=== PATIENT | female | born 1955 | race Caucasian/White ===

== ENCOUNTER 2016-11-25 12:04 | Inpatient (IN) | payer MEDICAID, OTHER ==
[2016-11-25 12:16] VITALS: O2SAT 98
--- NOTE | 2016-11-25 14:01 | ED PDOC ---
HPI: Psych/Substance Abuse Time Seen by Provider: 11/25/16 12:53 Chief Complaint (Nursing): Psychiatric Evaluation Chief Complaint (Provider): Psychiatric Evaluation History Per: Patient History/Exam Limitations: no limitations Current Symptoms Are (Timing): Still Present Associated Symptoms: Depression. denies: Suicidal Thoughts Additional Complaint(s): Madison Alfred, a 60 year old female, who has a past medical history of depression is brought into the ED for psychiatric evaluation. The patient has been depressed for some time and recently had her antidepressant medication cut by her doctor. The patient was recently seen at a social workers office and sent to the ER. The patient reports that she has been feeling more depressed than usual and so she is here to day for evaluation. She states she cannot sleep and has been feeling anxious. Denies HI/SI hallucinations. Family members are present with patient. Past Medical History Reviewed: Historical Data, Nursing Documentation, Vital Signs Vital Signs: Last Vital Signs Temp 97.9 F 11/25/16 12:13 Pulse 85 11/25/16 12:13 Resp 18 11/25/16 12:13 BP 124/76 11/25/16 12:13 Pulse Ox 98 11/25/16 12:13 - Medical History PMH: Depression - Surgical History Surgical History: No Surg Hx - Family History Family History: States: Unknown Family Hx - Home Medications Home Medications: Ambulatory Orders Medication Instructions Recorded Phenobarbital [Phenobarbital] 97.2 mg PO HS 11/25/16 QUEtiapine [Seroquel XR] 50 mg PO HS 11/25/16 Venlafaxine [Effexor XR] 150 mg PO DAILY 11/25/16 clonazePAM [Klonopin] 0.5 mg PO HS 11/25/16 - Allergies Allergies/Adverse Reactions: Allergies Allergy/AdvReac Type Severity Reaction Status Date / Time No Known Allergies Allergy Verified 11/25/16 12:13 Review of Systems Psych: Positive for: Other (Denies HI/SI halucinations). Negative for: Suicidal ideation Physical Exam - Reviewed Nursing Documentation Reviewed: Yes Vital Signs Reviewed: Yes - Physical Exam Appears: Positive for: Non-toxic, No Acute Distress Head Exam: Positive for: ATRAUMATIC, NORMAL INSPECTION, NORMOCEPHALIC Skin: Positive for: Normal Color, Warm, Dry Eye Exam: Positive for: Normal appearance, EOMI, PERRL ENT: Positive for: Normal ENT Inspection Neck: Positive for: Normal, Painless ROM, Supple Cardiovascular/Chest: Positive for: Regular Rate, Rhythm, Chest Non Tender. Negative for: Tachycardia Respiratory: Positive for: Normal Breath Sounds. Negative for: Wheezing, Respiratory Distress Gastrointestinal/Abdominal: Positive for: Normal Exam, Bowel Sounds, Soft. Negative for: Tenderness, Guarding Back: Positive for: Normal Inspection Extremity: Positive for: Normal ROM. Negative for: Tenderness, Pedal Edema, Deformity, Swelling Neurologic/Psych: Positive for: Alert, Oriented, Gait - Laboratory Results Result Diagrams: 11/25/16 14:51 11/25/16 14:51 - ECG O2 Sat by Pulse Oximetry: 98 (RA) Pulse Ox Interpretation: Normal Medical Decision Making Medical Decision Makin Initial Impression: 60 year old female presenting for psychiatric Evaluation Initial Plan: * EKG * Alcohol Serum * Comp Metabolic Panel * Drug Screen * Crisis Evaluation * CBC * CXR Portable * Reevaluation * * Pt qualifies for admission. pt is stable for admission at this time. Scribe Attestation Documented by Esha Palumbo acting as a scribe for Kelsi Boogie PA-C. Scribe Attestation All medical record entries made by the Scribe were at my direction and personally dictated by me. I have reviewed the chart and agree that the record accurately reflects my personal performance of the history, physical exam, medical decision making, and the department course for this patient. I have also personally directed, reviewed, and agree with the discharge instructions and disposition. Disposition - Clinical Impression Clinical Impression: Depressive disorder - Patient ED Disposition Is Patient to be Admitted: Yes - Disposition Disposition Time: 15:42 Condition: STABLE - Pt Status Changed To: Hospital Disposition Of: Inpatient - Admit Certification Admit to Inpatient:: After my assessment, the patient will require hospitalization for at least two midnights. This is because of the severity of symptoms shown, intensity of services needed, and/or the medical risk in this patient being treated as an outpatient.
--- NOTE | 2016-11-25 14:34 | RAD ---
HISTORY: medica exam COMPARISON: No prior. FINDINGS: LUNGS: No active pulmonary disease. PLEURA: No significant pleural effusion identified, no pneumothorax apparent. CARDIOVASCULAR: Normal. OSSEOUS STRUCTURES: No significant abnormalities. VISUALIZED UPPER ABDOMEN: Normal. OTHER FINDINGS: None. IMPRESSION: No active disease.
[2016-11-25 14:56] LABS: BASO % 0.5 % (0.0-2.0); EOS # 0.1 K/uL (0.0-0.7); EOS % 2.9 % (0.0-4.0); HEMOGLOBIN 13.2 g/dL (12.0-16.0); LYMPH # 0.8 K/uL (1.0-4.3); LYMPH % 16.9 % (20.0-40.0); MEAN CELL VOLUME 81.6 fl (81.0-99.0); MEAN CORPUSCULAR HEMOGLOBIN 27.3 pg (27.0-31.0); MEAN CORPUSCULAR HGB CONC 33.5 g/dL (33.0-37.0); MEAN PLATELET VOLUME 6.7 fl (7.2-11.7); MONO # 0.7 K/uL (0.0-0.8); MONO % 13.9 % (0.0-10.0); NEUT # 3.1 K/uL (1.8-7.0); NEUT % 65.8 % (50.0-75.0); NRBC % 0.1 % (0.0-0.0); RBC 4.82 Mil/uL (3.80-5.20); RED CELL DISTRIBUTION WIDTH 13.7 % (11.5-14.5); WHITE BLOOD COUNT 4.7 K/uL (4.8-10.8)
[2016-11-25 15:09] LABS: BARBITURATES, UR POSITIVE (NEGATIVE); BENZODIAZEPINES, UR NEGATIVE (NEGATIVE); OPIATES, UR NEGATIVE (NEGATIVE); PHENCYCLIDINE, UR NEGATIVE (NEGATIVE)
[2016-11-25 15:19] LABS: ALB/GLOB RATIO 1.5 (1.0-2.1); ALBUMIN 4.6 g/dL (3.5-5.0); ALT/SGPT 46 U/L (9-52); AST/SGOT 32 U/L (14-36); BLOOD UREA NITROGEN 19 mg/dl (7-17); CALCIUM 9.6 mg/dL (8.4-10.2); GFR AFRICAN-AMERICAN > 60; GFR NON-AFRICAN AMERICAN > 60
[2016-11-25] MEDS ORDERED: Alum-Mag Hydrox-Simethicone Susp (30 mL) PO PRN (17:18)
[2016-11-25] MEDS ORDERED: Magnesium Hydroxide Susp 30 ml UD PO PRN (17:18)
[2016-11-25] MEDS ORDERED: DiphenhydrAMINE 50 mg/ml Inj IM PRN (17:18)
[2016-11-26 07:31] LABS: ALB/GLOB RATIO 1.4 (1.0-2.1); ALBUMIN 4.6 g/dL (3.5-5.0); ALT/SGPT 44 U/L (9-52); AST/SGOT 29 U/L (14-36); BLOOD UREA NITROGEN 16 mg/dl (7-17); CALCIUM 9.4 mg/dL (8.4-10.2); GFR AFRICAN-AMERICAN > 60; GFR NON-AFRICAN AMERICAN > 60; HDL CHOLESTEROL 57 MG/DL (30-70)
[2016-11-26 07:36] LABS: T4 7.86 ug/dl (5.5-11.0)
[2016-11-26 07:42] LABS: LDL CHOLESTEROL 78 mg/dL (0-129)
--- NOTE | 2016-11-26 09:35 | CP.PCM.CON ---
<Jose Barksdale - Last Filed: 11/26/16 12:00> History of Present Illness - History of Present Illness History of Present Illness: 60 y/o female with a PMHx of depression and cervical dysplasia s/p radiation tx who came into [facility] ED for evaluation. She reports she has been feeling more anxious and energized recently. She reports she has been making lots of phone calls to random people and has not been able to sleep. She also reports her anti -depression medications have run out. No other complaints. Denies suicidal/ homicidal ideation, denies visual/auditory hallucinations. ROS: 12 points reviewed, found to be negative. PMD: PMHx: depression, cervical dysplasia (pt reports she was diagnosed "pre- cancercous" Meds: as per med rec ALL: NKDA Psurghx: hysterectomy for fibroma 15 yeras ago, HPV procedure? LMP: 15 years ago POBhx: , NSVDx3 SocialHx: denies ETOH, Tobacco, drug abuse. FamilyHx: noncontributory PE: GEN: AAOx3, NAD, pleasant mood HEENT: atraumatic, EMOI, RAI, sclera nonicteric, conjunctiva clear, no cervical adenopathy, carotid bruit, FROM CVS: RRR, S1S2, No JVD, No MRG RESP: CTA B/L, A/P, Good air entry, No WRR ABD: +BS, Soft, NT/ND/No organomegaly, no masses, no guarding/rigidity EXT: Pulses 2+ throughout, no pedal edema, FROM NEURO: CN II-XII grossly intact, sensation intact, reflexes equal b/l, gait normal PSYCH: flat affect, cooperative with examination, judgement/insight good, no suicidal/homicidal ideation Assessment: 60 y/o female with a PMHx of depression admitted for evaluation for depressive disorder. Plan: 1) Depressive Disorder: -as per psych team 2) Preventive -HbA1c: pending -Lipid panel: pending -RPR: pending -CBC: pending -CMP: pending -will continue to follow as pt remains in house. Past Patient History - Past Social History Smoking Status: Never Smoked - CARDIAC Hx Cardiac Disorders: No - PULMONARY Hx Respiratory Disorders: No - NEUROLOGICAL Hx Neurological Disorder: No Hx Alzheimer's Disease: No HX Cerebrovascular Accident: No Other/Comment: history of epileptic attacks - HEENT Hx HEENT Problems: No - RENAL Hx Chronic Kidney Disease: No - ENDOCRINE/METABOLIC Hx Endocrine Disorders: No - HEMATOLOGICAL/ONCOLOGICAL Hx Blood Disorders: No Hx Human Immunodeficiency Virus (HIV): No Other/Comment: patient states she is getting radiation treatment and states she has cervical dysplasia and however states that she never got diagnosed with cancer - INTEGUMENTARY Hx Dermatological Problems: No - MUSCULOSKELETAL/RHEUMATOLOGICAL Hx Musculoskeletal Disorders: No - GENITOURINARY/GYNECOLOGICAL Hx Cervical Cancer: No (patient states she has no cancer but has cervical dysplasia) Other/Comment: hs of HPV - PSYCHIATRIC Hx Depression: Yes Hx Substance Use: No (pt denies) - SURGICAL HISTORY Hx Surgeries: No Hx Hysterectomy: Yes - ANESTHESIA Hx Anesthesia: No Meds Allergies/Adverse Reactions: Allergies Allergy/AdvReac Type Severity Reaction Status Date / Time No Known Allergies Allergy Verified 11/25/16 12:13 - Medications Medications: Current Medications Acetaminophen (Tylenol 325mg Tab) 650 mg PO Q4 PRN PRN Reason: pain 0-10 Al Hydrox/Mg Hydrox/Simethicone (Maalox Plus 30 Ml) 30 ml PO Q4 PRN PRN Reason: Dyspepsia Diphenhydramine HCl (Benadryl) 50 mg IM Q6 PRN PRN Reason: Extrapyramidal S/S Unable PO Diphenhydramine HCl (Benadryl) 50 mg PO HS PRN PRN Reason: Sleep Last Admin: 11/26/16 00:40 Dose: 50 mg Diphenhydramine HCl (Benadryl) 50 mg PO Q6 PRN PRN Reason: /dystonic readtion Haloperidol (Haldol) 5 mg PO Q4 PRN PRN Reason: Agitation Last Admin: 11/26/16 00:40 Dose: 5 mg Haloperidol Lactate (Haldol) 5 mg IM Q6 PRN PRN Reason: agitation if necessary Lorazepam (Ativan) 2 mg IM Q4 PRN PRN Reason: Anxiety/Agitation,Unable PO Lorazepam (Ativan) 2 mg PO Q4 PRN PRN Reason: Anxiety Magnesium Hydroxide (Milk Of Magnesia) 30 ml PO HS PRN PRN Reason: Constipation Quetiapine Fumarate (Seroquel) 50 mg PO HS RAHUL Last Admin: 11/25/16 21:11 Dose: 50 mg Results - Vital Signs Recent Vital Signs: Last Vital Signs Temp 97.5 F L 11/26/16 08:40 Pulse 77 11/26/16 08:40 Resp 18 11/26/16 08:40 BP 119/67 11/26/16 08:40 Pulse Ox 98 11/25/16 15:42 - Labs Result Diagrams: 11/25/16 14:51 11/26/16 06:00 Labs: Laboratory Results - last 24 hr 11/26/16 11/26/16 06:00 06:00 Sodium 138 Potassium 4.1 Chloride 100 Carbon Dioxide 29 Anion Gap 13 BUN 16 Creatinine 0.7 Est GFR ( Amer) > 60 Est GFR (Non-Af Amer) > 60 Random Glucose 93 Calcium 9.4 Total Bilirubin 0.7 AST 29 ALT 44 Alkaline Phosphatase 104 Total Protein 7.8 Albumin 4.6 Globulin 3.2 Albumin/Globulin Ratio 1.4 Triglycerides 65 Cholesterol 170 LDL Cholesterol Direct 78 HDL Cholesterol 57 Vitamin B12 463 Thyroxine (T4) 7.86 TSH 3rd Generation 2.10 <Alexys Garnado - Last Filed: 11/27/16 11:09> Meds - Medications Medications: Current Medications Acetaminophen (Tylenol 325mg Tab) 650 mg PO Q4 PRN PRN Reason: pain 0-10 Al Hydrox/Mg Hydrox/Simethicone (Maalox Plus 30 Ml) 30 ml PO Q4 PRN PRN Reason: Dyspepsia Diphenhydramine HCl (Benadryl) 50 mg IM Q6 PRN PRN Reason: Extrapyramidal S/S Unable PO Diphenhydramine HCl (Benadryl) 50 mg PO HS PRN PRN Reason: Sleep Last Admin: 11/26/16 00:40 Dose: 50 mg Diphenhydramine HCl (Benadryl) 50 mg PO Q6 PRN PRN Reason: /dystonic readtion Haloperidol (Haldol) 5 mg PO Q4 PRN PRN Reason: Agitation Last Admin: 11/26/16 00:40 Dose: 5 mg Haloperidol Lactate (Haldol) 5 mg IM Q6 PRN PRN Reason: agitation if necessary Lorazepam (Ativan) 2 mg IM Q4 PRN PRN Reason: Anxiety/Agitation,Unable PO Lorazepam (Ativan) 2 mg PO Q4 PRN PRN Reason: Anxiety Magnesium Hydroxide (Milk Of Magnesia) 30 ml PO HS PRN PRN Reason: Constipation Xaaie-[id number] Ethyl Esters (Lovaza) 1 gm PO BID [facility]ENDING SALE TO [facility] Last Admin: 11/27/16 09:27 Dose: 1 gm Phenobarbital (Phenobarbital Tab) 90 mg PO [facility] Last Admin: 11/26/16 21:29 Dose: 90 mg Quetiapine Fumarate (Seroquel) 50 mg PO [facility] Last Admin: 11/26/16 21:29 Dose: 50 mg Results - Vital Signs Recent Vital Signs: Last Vital Signs Temp 98.1 F 11/27/16 09:35 Pulse 79 11/27/16 09:35 Resp 18 11/27/16 09:35 BP 118/77 11/27/16 09:35 Pulse Ox 98 11/25/16 15:42 - Labs Result Diagrams: 11/27/16 05:30 11/27/16 05:30 Labs: Laboratory Results - last 24 hr 11/26/16 11/26/16 11/27/16 06:00 06:00 05:30 WBC 3.7 L RBC 4.96 Hgb 13.5 Hct 40.6 MCV 81.9 MCH 27.3 MCHC 33.4 RDW 13.5 Plt Count 287 MPV 6.4 L Neut % (Auto) 58.0 Lymph % (Auto) 21.4 [place] % (Auto) 15.9 H Eos % (Auto) 4.2 H Baso % (Auto) 0.5 Neut # 2.2 Lymph # 0.8 L [place] # 0.6 Eos # 0.2 Baso # 0.0 Sodium Potassium Chloride Carbon Dioxide Anion Gap BUN Creatinine Est GFR ( Amer) Est GFR (Non-Af Amer) Random Glucose Hemoglobin A1c 5.8 Calcium Total Bilirubin AST ALT Alkaline Phosphatase Total Protein Albumin Globulin Albumin/Globulin Ratio Triglycerides Cholesterol LDL Cholesterol Direct HDL Cholesterol RPR Nonreactive 11/27/16 05:30 WBC RBC Hgb Hct MCV MCH MCHC RDW Plt Count MPV Neut % (Auto) Lymph % (Auto) [place] % (Auto) Eos % (Auto) Baso % (Auto) Neut # Lymph # [place] # Eos # Baso # Sodium 138 Potassium 4.2 Chloride 103 Carbon Dioxide 29 Anion Gap 11 BUN 18 H Creatinine 0.8 Est GFR ( Amer) > 60 Est GFR (Non-Af Amer) > 60 Random Glucose 99 Hemoglobin A1c Calcium 9.1 Total Bilirubin 0.5 AST 28 ALT 39 Alkaline Phosphatase 95 Total Protein 7.2 Albumin 4.2 Globulin 3.0 Albumin/Globulin Ratio 1.4 Triglycerides 58 Cholesterol 157 LDL Cholesterol Direct 76 HDL Cholesterol 51 RPR Assessment & Plan - Assessment and Plan (Free Text) Assessment: Patient was personally seen and examined by me in rounds with residents. Available labs and diagnostic data reviewed. Case, Patient's condition and management plan discussed with residents in rounds. Agree with resident's progress note. Plan: As ordered.
--- NOTE | 2016-11-26 13:23 | PCM.PSYCH ---
Initial Psychiatric Evaluation - Initial Psychiatric Evaluation Type of Admission: Voluntary Legal Status: Capacity Chief Complaint (in patient's own words): i am not crazy in the head Patient's Reaction to Hospitalization: cooperative History of Present Illness and Precipitating Events: 60 yo female seen in [facility] and sent to [facility] after presenting as manic and agitated. she states she is calm now. she reports she was feeling manic and having trouble sleeping for the past few days. she states she was told to stop her antidepressant. she states now that she is in the hospital she is feeling much more calm. she is agreeable to be observed here in the hospital and is allowing contact with her family. she denies any suicidal or homicidal or psychotic thoughts currently. pt does admit that her behaviors were very dramatic over the past few days and she cannot identify any immediate stress, but she does report her recently had a stroke. pt states her antidepressant was recently stopped. Current Medications: Active Medications Generic Name Dose Route Start Last Admin Trade Name Freq PRN Reason Stop Dose Admin Acetaminophen 650 mg 11/25/16 17:26 Tylenol 325mg Tab PO Q4 PRN pain 0-10 Al Hydrox/Mg Hydrox/Simethicone 30 ml 11/25/16 17:18 Maalox Plus 30 Ml PO Q4 PRN Dyspepsia Diphenhydramine HCl 50 mg 11/25/16 17:18 Benadryl IM Q6 PRN Extrapyramidal S/S Unable PO Diphenhydramine HCl 50 mg 11/25/16 17:23 11/26/16 00:40 Benadryl PO 50 mg HS PRN Administration Sleep Diphenhydramine HCl 50 mg 11/25/16 17:23 Benadryl PO Q6 PRN /dystonic readtion Haloperidol 5 mg 11/25/16 17:18 11/26/16 00:40 Haldol PO 5 mg Q4 PRN Administration Agitation Haloperidol Lactate 5 mg 11/25/16 17:28 Haldol IM Q6 PRN agitation if necessary Lorazepam 2 mg 11/25/16 17:18 Ativan IM Q4 PRN Anxiety/Agitation,Unable PO Lorazepam 2 mg 11/25/16 17:22 Ativan PO Q4 PRN Anxiety Magnesium Hydroxide 30 ml 11/25/16 17:18 Milk Of Magnesia PO HS PRN Constipation [id number]-7-[id number] Ethyl Esters 1 gm 11/26/16 17:00 Lovaza PO BID [facility] Phenobarbital 90 mg 11/26/16 22:00 Phenobarbital Tab PO HS [facility] Quetiapine Fumarate 50 mg 11/25/16 22:00 11/25/16 21:11 Seroquel PO 50 mg HS [facility] Administration Past Psychiatric History - Past Psychiatric History Previous Treatment History: None Prior Professional Help: sees dr. deras [facility]: denies any previous hospitalizations History of Abuse: denies History of ETOH/Drug Use: denies History of Family Illness: denies Pertinent Medical Hx (Current Medical&Sleep Prob, Allergies): Allergies Allergy/AdvReac Type Severity Reaction Status Date / Time No Known Allergies Allergy Verified 11/25/16 12:13 Phenobarbital [Phenobarbital] 97.2 mg PO HS 11/25/16 QUEtiapine [Seroquel XR] 50 mg PO BID 11/25/16 Venlafaxine [Effexor XR] 150 mg PO DAILY 11/25/16 clonazePAM [Klonopin] 0.5 mg PO HS 11/25/16 traZODone [trazODONE HYDROCHLORIDE] 50 mg PO HS 11/26/16 Review of Systems - Psychiatric Psychiatric: As Per HPI Mental Status Examination - Personal Presentation Personal Presentation: Looks stated age - Affect Affect: Broad - Motor Activity Motor Activity: Calm - Reliability in Providing Information Reliability in Providing Information: Good - Speech Speech: Organized - Mood Mood: Neutral - Formal Thought Process Formal Thought Process: No Impairment - Obsessions/Compulsions Obsessions: No Compulsions: No - Cognitive Functions Orientation: Person, Place, Situation, Time Sensorium: Alert Attention/Concentration: Attentive Abstract Thinking: [place] Estimate of Intelligence: Average Judgement: Intact, as evidence by: Insight regarding need for hospitalization Memory: Recent intact, as evidence by: Ability to recall events of the day, Remote intact, as evidenced by: Abilit to recall sig. life events - Risk Risk: Suicidal (denies any suicidal thoughts/plan or intent), Seizure (on meds) - Strength & Assets Inventory Strength & Assets Inventory: Intelligence, Family support DSM 5 DX - DSM 5 DSM 5 Diagnosis: bipolar disorder, mixed - Recommended/Plan of Treatment Treatment Recommendations and Plan of Treatment: admit to 3 for safety and observation gather collateral information hospitalist consult adjust medications- observe on current medications disposition planning supportive therapy Projected ELOS: 3-5 days Prognosis: fair - Smoking Cessation Smoking Cessation Initiated: No Reason for not providing: does not smoke
--- NOTE | 2016-11-26 16:34 | CARD ---
APPROVED REPORT EKG Measurement Heart [id number] <Conclusion> Normal sinus rhythm Possible Left atrial enlargement Borderline ECG
[2016-11-26] MEDS: Omega-3-Acid Ethyl Esters 1 GM Cap PO SCH (17:12)
[2016-11-27 07:32] LABS: BASO % 0.5 % (0.0-2.0); EOS # 0.2 K/uL (0.0-0.7); EOS % 4.2 % (0.0-4.0); HEMOGLOBIN 13.5 g/dL (12.0-16.0); LYMPH # 0.8 K/uL (1.0-4.3); LYMPH % 21.4 % (20.0-40.0); MEAN CELL VOLUME 81.9 fl (81.0-99.0); MEAN CORPUSCULAR HEMOGLOBIN 27.3 pg (27.0-31.0); MEAN CORPUSCULAR HGB CONC 33.4 g/dL (33.0-37.0); MEAN PLATELET VOLUME 6.4 fl (7.2-11.7); MONO # 0.6 K/uL (0.0-0.8); MONO % 15.9 % (0.0-10.0); NEUT # 2.2 K/uL (1.8-7.0); NRBC % 0.2 % (0.0-0.0); RBC 4.96 Mil/uL (3.80-5.20); RED CELL DISTRIBUTION WIDTH 13.5 % (11.5-14.5); WHITE BLOOD COUNT 3.7 K/uL (4.8-10.8)
[2016-11-27 07:34] LABS: ALB/GLOB RATIO 1.4 (1.0-2.1); ALBUMIN 4.2 g/dL (3.5-5.0); ALT/SGPT 39 U/L (9-52); AST/SGOT 28 U/L (14-36); BLOOD UREA NITROGEN 18 mg/dl (7-17); CALCIUM 9.1 mg/dL (8.4-10.2); GFR AFRICAN-AMERICAN > 60; GFR NON-AFRICAN AMERICAN > 60; HDL CHOLESTEROL 51 MG/DL (30-70)
[2016-11-27 07:45] LABS: LDL CHOLESTEROL 76 mg/dL (0-129)
[2016-11-27] MEDS: Omega-3-Acid Ethyl Esters 1 GM Cap PO SCH ×2 (09:27→16:47)
--- NOTE | 2016-11-27 11:42 | PN ---
MEDICAL FOLLOWUP DATE: 11/27/2016 SUBJECTIVE: The patient seen and examined, interim events noted. Psychiatry interventions noted and appreciated. The patient remains in psych unit. Denies any specific medical complaint. No chest pain. No shortness of breath. PHYSICAL EXAMINATION: GENERAL: The patient is in no acute distress. VITAL SIGNS: Stable. HEART: S1 and S2 normal, regular. LUNGS: Good bilateral air exchange. ABDOMEN: Soft and nontender. EXTREMITIES: No calf swelling. No tenderness. No acute ischemia. CENTRAL NERVOUS SYSTEM: Essentially unchanged. DIAGNOSTIC DATA: Available diagnostic data reviewed. ASSESSMENT: Overall, the patient's general medical condition is stable. PLAN: As ordered. Alexys Granado MD
--- NOTE | 2016-11-27 20:46 | PCM.PYCHPN ---
Psychiatric Progress Note - Psychiatric Progress Note Patient seen today, length of contact: chart reviewed case discussed with team Patient Chief Complaint: was feeling hyper lots of energy is beginning feeling calmer now denies side effects rx. staff report pt rx adherent. seen in milieu. beginning to sleep better. Problems Identified/Issues Discussed: alteration in mood alteration in sleep Medical Problems: per chart Diagnostic Results: per psychiatry per medicine per elementary school social worker per recreational therapy DSM 5 Symptoms Update: mood some improving related to lability in mood and sleep Medication Change: No Medical Record Reviewed: Yes Mental Status Examination - Cognitive Function Orientation: Person, Place, Situation, Time Attention: WNL Concentration: WNL Association: [facility] Fund of Knowledge: [facility] Decription of patient's judgement and insights: somewhat impaired - Mood Mood: Neutral - Affect Affect: Broad - Formal Thought Process Formal Thought Process: No Impairment - Homicidal Ideation Homicidal Ideation: No Goal/Treatment Plan - Goal/Treatment Plan Need for Continued Stay: Remain at risks for inpatient hospitalization Progress Toward Problem(s) and Goals/Treatment Plan: inpt milieu adjust meds per status vital signs and clinical observation per protocol and per status german speaking provider conducted evaluation discharge planning in progress Estimated Date of D/C: 12/01/16 - Smoking Cessation Smoking Cessation Initiated: No Reason for not providing: deferred
[2016-11-28] MEDS: Omega-3-Acid Ethyl Esters 1 GM Cap PO SCH ×2 (08:58→17:18)
--- NOTE | 2016-11-28 17:15 | PCM.PYCHPN ---
Psychiatric Progress Note - Psychiatric Progress Note Patient seen today, length of contact: chart reviewed case discussed with team Patient Chief Complaint: reports doing better, sleeping and eating improved, had visit with family today , reported as positive-reportedly they have told her that she appears to be doing better. rx milieu adherent per staff. Problems Identified/Issues Discussed: alteration in mood alteration in sleep Medical Problems: per chart Diagnostic Results: per psychiatry per medicine per psychotherapist social worker per recreational therapy DSM 5 Symptoms Update: alteration in mood-improving Medication Change: No Medical Record Reviewed: Yes Consults ordered or reviewed: pt being followed by hospitalist Mental Status Examination - Cognitive Function Orientation: Person, Place, Situation, Time Attention: WNL Concentration: WNL Association: WNL Fund of Knowledge: [facility] Decription of patient's judgement and insights: somewhat impaired - Mood Mood: Neutral - Affect Affect: Broad - Formal Thought Process Formal Thought Process: No Impairment - Homicidal Ideation Homicidal Ideation: No Goal/Treatment Plan - Goal/Treatment Plan Need for Continued Stay: Remain at risks for inpatient hospitalization Progress Toward Problem(s) and Goals/Treatment Plan: inpt milieu adjust meds per status vital signs and clinical observation per protocol and per status samoan speaking provider conducted evaluation discharge planning in progress Estimated Date of D/C: 12/01/16 - Smoking Cessation Smoking Cessation Initiated: No Reason for not providing: deferred
[2016-11-28 22:13] VITALS: RESP 18
[2016-11-29] MEDS: Omega-3-Acid Ethyl Esters 1 GM Cap PO SCH (09:03)
[2016-11-29 09:11] VITALS: BP 112/71; PULSE 81; TEMP 97.7
--- NOTE | 2016-11-29 10:22 | PCM.PYCHDC ---
Mental Status Examination - Mental Status Examination Orientation: Person, Place, Situation, Time Memory: Intact Mood: Neutral Affect: Broad Speech: Appropriate Attention: WNL Concentration: WNL Association: WNL Fund of Knowledge: WNL Formal Thought Process: No Impairment Description of patient's judgement and insight: fair i/j Psychotic Thoughts and Behaviors: denies a/v hallucinations Suicidal Ideation: No Current Homicidal Ideation?: No Plan: pt denies any suicidal or homicidal thoughts/plans or intent Discharge Summary - Discharge Note Reason for Hospitalization: saadia/out of control behaviors. Psychiatric History (includes Medical, Family, Personal Hx): history of bipolar disorder Consultations:: List each consultation separately and include: 1. Reason for request. 2. Findings. 3. Follow-up Summary of Hospital Course include:: 1. Description of specific treatment plan utilized for patients during their course of treatmen. 2. Summarize the time- course for resolution of acute symptoms and/or regressed behaviors. 3. Describe issues identified and worked on during hospitalization. 4. Describe medication utilized. 5. Describe medical problems identified and treated. 6. Reassessment of suicide risk Summary of Hospital Course: 60 yo female seen in [facility] and sent to 3r after presenting as manic and agitated. she states she is calm now. she reports she was feeling manic and having trouble sleeping for the past few days. she states she was told to stop her antidepressant. she states now that she is in the hospital she is feeling much more calm. she is agreeable to be observed here in the hospital and is allowing contact with her family. she denies any suicidal or homicidal or psychotic thoughts currently. pt does admit that her behaviors were very dramatic over the past few days and she cannot identify any immediate stress, but she does report her recently had a stroke. pt states her antidepressant was recently stopped. hospital course pt was admitted to [facility] and oriented to the unit. pt was placed on routine safety protocols. pt was restarted on her home medications. pt was without saadia or agitation on the unit. she was taking medications as prescribed. pt was agreeable to follow up with outpatient appointments with her usual providers. she had good family visits and was in behavioral control. pt was denying any suicidal or homicidal thoughts/plans or intent at the time of discharge. - Final Diagnosis (DSM 5) Condition upon Discharge: STABLE DSM 5: bipolar disorder, mixed Disposition: HOME/ ROUTINE Follow-up Treatment Plan: follow up with aftercare as directed take medications as prescribed do not use alcohol, tobacco or other illicit substances call 911 if any suicidal or homicidal thoughts Prescriptions/Medication Reconciliation: [id number] Ethyl Esters 1 GM [Lovaza] 1 gm PO BID #30 sgl QUEtiapine [SEROquel] 50 mg PO HS #30 tab - Smoking Cessation Smoking Cessation Medication prescribed: No - Antipsychotic Medications Pt discharged on 2 or more routine antipsychotic medications: No
--- NOTE | 2016-11-29 12:05 | PN ---
DATE: 11/29/2016 SUBJECTIVE: The patient is seen and examined. Interim events noted. Psychiatry followup and intervention noted and appreciated. The patient remains in Psychiatry Unit and feels much better. No chest pain. No shortness of breath. No specific medical complaints. PHYSICAL EXAMINATION: GENERAL: The patient is in no acute distress. VITAL SIGNS: Stable. HEART: S1 and S2 normal and regular. LUNGS: Good bilateral air exchange. ABDOMEN: Soft and nontender. EXTREMITIES: No edema. No calf swelling or tenderness. No acute ischemia. CENTRAL NERVOUS SYSTEM: Essentially unchanged. DIAGNOSTIC DATA: Available diagnostic data reviewed. ASSESSMENT: Overall, the patient's general medical condition is stable. Psychiatry sanches also, the patient seems to be doing better. PLAN: As ordered. Assessment and plan discussed with the patient and nursing staff. Alexys Granado MD
== END 2016-11-29 13:45 | disposition home or self-care (01) | DRG 430 ==
LOC: H.ER 12:04 → H.ERHOLD 15:16 → H.PSYCH 16:43
PROVIDERS: ADMIT Psychiatry & Neurology Psychiatry; ATTEND Psychiatry & Neurology Psychiatry
PROC: GZHZZZZ Group Psychotherapy (ICD-10-PCS; principal; 2016-11-25)
PROC: GZ51ZZZ Individual Psychotherapy, Behavioral (ICD-10-PCS; 2016-11-25)
DX: F31.60 Bipolar disorder, current episode mixed, unspecified (principal); G40.909 Epilepsy, unspecified, not intractable, without status epilepticus; Z86.73 Personal history of transient ischemic attack (TIA), and cerebral infarction without residual deficits; Z87.410 Personal history of cervical dysplasia; Z90.710 Acquired absence of both cervix and uterus; Z92.3 Personal history of irradiation

== ENCOUNTER 2016-12-02 18:17 | Inpatient (IN) | payer MEDICAID, OTHER ==
--- NOTE | 2016-12-02 18:24 | ED PDOC ---
HPI: Psych/Substance Abuse Time Seen by Provider: 12/02/16 18:24 Chief Complaint (Nursing): Psychiatric Evaluation Chief Complaint (Provider): crisis eval History Per: Patient Additional Complaint(s): 60-year-old female with history of depression and bipolar disorder presents for crisis eval. Patient was sent from mental health clinic for crisis eval. As per clinic doctor patient appeared anxious and manic. Upon arrival to ED, patient offers no complaints and denies any suicidal or homicidal ideation. Past Medical History Reviewed: Historical Data, Nursing Documentation, Vital Signs Vital Signs: Last Vital Signs Temp 97.4 F L 12/02/16 18:18 Pulse 77 12/02/16 18:18 Resp 16 12/02/16 18:18 BP 137/74 12/02/16 18:18 Pulse Ox 100 12/02/16 18:18 - Medical History PMH: Anxiety, Depression, Seizures - Family History Family History: States: No Known Family Hx - Living Arrangements Living Arrangements: With Family - Social History Current smoker - smoking cessation education provided: No Alcohol: None Drugs: Denies - Home Medications Home Medications: Ambulatory Orders Medication Instructions Recorded [id number] Ethyl Esters 1 GM 1 gm PO BID #30 sgl 11/29/16 [Lovaza] PHENobarbital [PHENobarbital Tab] 90 mg PO HS tab 11/29/16 QUEtiapine [SEROquel] 50 mg PO HS #30 tab 11/29/16 - Allergies Allergies/Adverse Reactions: Allergies Allergy/AdvReac Type Severity Reaction Status Date / Time No Known Allergies Allergy Verified 12/02/16 18:18 Review of Systems ROS Statement: Except As Marked, All Systems Reviewed And Found Negative Cardiovascular: Negative for: Chest Pain Psych: Positive for: Other (sent by mental health clinic for crisis eval). Negative for: Suicidal ideation Physical Exam - Reviewed Nursing Documentation Reviewed: Yes Vital Signs Reviewed: Yes - Physical Exam Appears: Positive for: Well, Non-toxic, No Acute Distress Skin: Negative for: Rash Eye Exam: Positive for: Normal appearance Cardiovascular/Chest: Positive for: Regular Rate, Rhythm Respiratory: Positive for: Normal Breath Sounds. Negative for: Respiratory Distress Neurologic/Psych: Positive for: Alert, Oriented - Laboratory Results Result Diagrams: 12/02/16 20:15 12/02/16 20:15 - ECG Interpretation Of ECG: NSR 73 bpm, no acute finding, reviewed by PA and ED attending O2 Sat by Pulse Oximetry: 100 Pulse Ox Interpretation: Normal - Other Rad Bedside chest X-Ray: Interpreted by Me, Viewed By Me X-Ray Interpretation: no acute finding Medical Decision Making Medical Decision Makin60 year old here for crisis eval Plan: Crisis consult CBC CMP BAL UDS UA EKG CXR As per crisis counselor and psychiatrist intermission coordinator, Dr. Hui, patient does meet criteria for admission. She agrees to stay and signed herself in. Patient is medically stable for psychiatric admission. Disposition - Clinical Impression Clinical Impression: Bipolar disorder - Patient ED Disposition Is Patient to be Admitted: Yes - Disposition Disposition Time: 21:28 Condition: STABLE Forms: Enkia ([place] Verdean) - Pt Status Changed To: Hospital Disposition Of: Inpatient - Admit Certification Admit to Inpatient:: After my assessment, the patient will require hospitalization for at least two midnights. This is because of the severity of symptoms shown, intensity of services needed, and/or the medical risk in this patient being treated as an outpatient. - POA Present On Arrival: None Results - Lab Results Lab Results: 12/02/16 12/02/16 12/02/16 20:15 20:15 20:15 WBC 4.0 L RBC 4.99 Hgb 13.6 Hct 41.1 MCV 82.3 MCH 27.3 MCHC 33.2 RDW 13.2 Plt Count 314 MPV 6.6 L Neut % (Auto) 60.6 Lymph % (Auto) 22.1 [place] % (Auto) 13.8 H Eos % (Auto) 2.6 Baso % (Auto) 0.9 Neut # 2.4 Lymph # 0.9 L [place] # 0.6 Eos # 0.1 Baso # 0.0 Sodium 140 Potassium 4.3 Chloride 102 Carbon Dioxide 29 Anion Gap 13 BUN 16 Creatinine 0.7 Est GFR ( Amer) > 60 Est GFR (Non-Af Amer) > 60 Random Glucose 95 Calcium 9.5 Total Bilirubin 0.4 AST 33 ALT 43 Alkaline Phosphatase 122 Total Protein 8.0 Albumin 4.7 Globulin 3.3 Albumin/Globulin Ratio 1.4 Urine Color Yellow Urine Clarity Cloudy Urine pH 7.0 Ur Specific [place] 1.005 Urine Protein Negative Urine Glucose (UA) Neg Urine Ketones Negative Urine Blood Trace H Urine Nitrate Negative Urine Bilirubin Negative Urine Urobilinogen 0.2-1.0 Ur Leukocyte Esterase Trace H Urine RBC (Auto) 2 Urine Microscopic WBC 6 H Ur Squamous Epith Cells < 1 Urine Bacteria Rare Alcohol, Quantitative < 10
[2016-12-02 20:50] LABS: BASO % 0.9 % (0.0-2.0); EOS # 0.1 K/uL (0.0-0.7); EOS % 2.6 % (0.0-4.0); HEMOGLOBIN 13.6 g/dL (12.0-16.0); LYMPH # 0.9 K/uL (1.0-4.3); LYMPH % 22.1 % (20.0-40.0); MEAN CELL VOLUME 82.3 fl (81.0-99.0); MEAN CORPUSCULAR HEMOGLOBIN 27.3 pg (27.0-31.0); MEAN CORPUSCULAR HGB CONC 33.2 g/dL (33.0-37.0); MEAN PLATELET VOLUME 6.6 fl (7.2-11.7); MONO # 0.6 K/uL (0.0-0.8); MONO % 13.8 % (0.0-10.0); NEUT # 2.4 K/uL (1.8-7.0); NEUT % 60.6 % (50.0-75.0); NRBC % 0.2 % (0.0-0.0); RBC 4.99 Mil/uL (3.80-5.20); RED CELL DISTRIBUTION WIDTH 13.2 % (11.5-14.5)
[2016-12-02 21:02] LABS: SQUAMOUS EPITHIAL < 1 /hpf (0-5); URINE BACTERIA RARE (<OCC); URINE BILIRUBIN NEGATIVE (NEGATIVE); URINE CLARITY CLOUDY (Clear); URINE COLOR YELLOW (YELLOW); URINE GLUCOSE (UA) NEG (Normal); URINE NITRATE NEGATIVE (NEGATIVE); URINE PROTEIN NEGATIVE (NEGATIVE); URINE UROBILINOGEN 0.2-1.0 mg/dL (0.2-1.0)
[2016-12-02 21:08] LABS: URINE BLOOD TRACE (NEGATIVE); URINE LEUKOCYTE ESTERASE TRACE Leu/uL (Negative)
[2016-12-02 21:09] LABS: ALB/GLOB RATIO 1.4 (1.0-2.1); ALBUMIN 4.7 g/dL (3.5-5.0); ALT/SGPT 43 U/L (9-52); AST/SGOT 33 U/L (14-36); BLOOD UREA NITROGEN 16 mg/dl (7-17); CALCIUM 9.5 mg/dL (8.4-10.2); GFR AFRICAN-AMERICAN > 60; GFR NON-AFRICAN AMERICAN > 60
[2016-12-02 21:18] LABS: BARBITURATES, UR POSITIVE (NEGATIVE); BENZODIAZEPINES, UR NEGATIVE (NEGATIVE); OPIATES, UR NEGATIVE (NEGATIVE); PHENCYCLIDINE, UR NEGATIVE (NEGATIVE)
[2016-12-02 23:30] VITALS: O2SAT 99
[2016-12-03] MEDS ORDERED: DiphenhydrAMINE 50 mg/ml Inj IM PRN ×2 (00:52→01:03)
[2016-12-03] MEDS ORDERED: Alum-Mag Hydrox-Simethicone Susp (30 mL) PO PRN (00:52)
[2016-12-03] MEDS ORDERED: Magnesium Hydroxide Susp 30 ml UD PO PRN ×2 (00:52→01:03)
[2016-12-03] MEDS ORDERED: Omega-3-Acid Ethyl Esters 1 GM Cap PO SCH (09:00)
[2016-12-03] MEDS: Alum-Mag Hydrox-Simethicone Susp (30 mL) PO PRN (09:11)
[2016-12-03] MEDS: Omega-3-Acid Ethyl Esters 1 GM Cap PO SCH ×2 (09:11→16:57)
--- NOTE | 2016-12-03 10:12 | CARD ---
APPROVED REPORT EKG Measurement Heart [id number] <Conclusion> Normal sinus rhythm Normal ECG
--- NOTE | 2016-12-03 10:29 | PCM.PSYCH ---
Initial Psychiatric Evaluation - Initial Psychiatric Evaluation Type of Admission: Voluntary Legal Status: Capacity Chief Complaint (in patient's own words): you didn't give my my medicine Patient's Reaction to Hospitalization: irritable History of Present Illness and Precipitating Events: pt is a 60 yo female with seizure disorder, bipolar disorder. discharged from the 3np unit on tuesday and seen by her psychiatrist yesterday who found the pt to be manic. per report family stated pt had not slept or stopped talking since her discharge. she was unable to get her phenobarbitol from her neurologist and became anxious about this. today the pt is confused, writing down her medications because she states "i don't have a voice" despite talking clearly in korean. she denies having any symptoms and states she's been sleeping very well since she was discharge. she denies a/v hallucinations, but does appear to be internally preoccupied and with disorganized thoughts Current Medications: Active Medications Generic Name Dose Route Start Last Admin Trade Name Freq PRN Reason Stop Dose Admin Acetaminophen 650 mg 12/03/16 01:03 Tylenol 325mg Tab PO Q4 PRN Pain, moderate (4-7) Al Hydrox/Mg Hydrox/Simethicone 30 ml 12/03/16 01:03 12/03/16 09:11 Maalox Plus 30 Ml PO 30 ml Q4 PRN Administration Dyspepsia Diphenhydramine HCl 50 mg 12/03/16 01:03 Benadryl IM Q6 PRN Extrapyramidal S/S Unable PO Diphenhydramine HCl 50 mg 12/03/16 01:03 Benadryl PO Q6 PRN Extrapyramidal Symptoms Haloperidol 5 mg 12/03/16 01:03 Haldol PO Q4 PRN Agitation Haloperidol Lactate 5 mg 12/03/16 01:03 Haldol IM Q4 PRN Agitation, Unable to Take PO Lorazepam 2 mg 12/03/16 01:03 Ativan IM Q4 PRN Anxiety/Agitation,Unable PO Lorazepam 2 mg 12/03/16 01:03 12/03/16 01:27 Ativan PO 2 mg Q4 PRN Administration Anxiety/Agitation Magnesium Hydroxide 30 ml 12/03/16 01:03 Milk Of Magnesia PO HS PRN Constipation Zlkpd-1-Ylpv Ethyl Esters 1 gm 12/03/16 09:00 12/03/16 09:11 Lovaza PO 1 gm BID RAHUL Administration Phenobarbital 90 mg 12/03/16 22:00 Phenobarbital Tab PO HS RAHUL Quetiapine Fumarate 50 mg 12/03/16 22:00 Seroquel PO HS RAHUL Quetiapine Fumarate 25 mg 12/03/16 10:30 Seroquel PO BID RAHUL Past Psychiatric History - Past Psychiatric History Previous Treatment History: Inpatient Prior Professional Help: [facility]: [facility] Date: 11/29/16 History of Abuse: denies History of ETOH/Drug Use: denies History of Family Illness: denies Pertinent Medical Hx (Current Medical&Sleep Prob, Allergies): Allergies Allergy/AdvReac Type Severity Reaction Status Date / Time No Known Allergies Allergy Verified 12/02/16 18:18 Tczhv-9-Aswu Ethyl Esters 1 GM [Lovaza] 1 gm PO BID #30 sgl 11/29/16 PHENobarbital [PHENobarbital Tab] 90 mg PO HS tab 11/29/16 QUEtiapine [SEROquel] 50 mg PO HS #30 tab 11/29/16 Review of Systems - Psychiatric Psychiatric: As Per [facility] Mental Status Examination - Personal Presentation Personal Presentation: Looks stated age - Affect Affect: Broad - Motor Activity Motor Activity: Other (restless) - Reliability in Providing Information Reliability in Providing Information: Poor, due to alteration in thoughts - Speech Speech: Tangential - Mood Mood: Anxious, Euphoric - Formal Thought Process Formal Thought Process: Delusions, Loosening of associations - Obsessions/Compulsions Obsessions: No Compulsions: No - Cognitive Functions Orientation: Person, Place, Situation Sensorium: Alert Attention/Concentration: Easily distracted Abstract Thinking: [place] Estimate of Intelligence: Average Judgement: Intact, as evidence by: Insight regarding need for hospitalization Memory: Recent intact, as evidence by: Ability to recall events of the day - Risk Risk: Suicidal (denies suicidal thoughts), Seizure (history of seizure disorder) , Diminished functioning - Strength & Assets Inventory Strength & Assets Inventory: Intelligence DSM 5 DX - DSM 5 DSM 5 Diagnosis: bipolar disorder, manic - Recommended/Plan of Treatment Treatment Recommendations and Plan of Treatment: admit to 3[facility] for safety an observation gather collateral information adjust medications- restart home meds and titrate up seroquel neurolgy consult as pt has concerns with her seizure meds supportive therapy disposition planning Projected ELOS: 3-5 days Prognosis: fair - Smoking Cessation Smoking Cessation Initiated: No Reason for not providing: declines
--- NOTE | 2016-12-03 11:53 | RAD ---
HISTORY: clearance COMPARISON: 11/25/2016 FINDINGS: LUNGS: No active pulmonary disease. PLEURA: No significant pleural effusion identified, no pneumothorax apparent. CARDIOVASCULAR: Normal. OSSEOUS STRUCTURES: No significant abnormalities. VISUALIZED UPPER ABDOMEN: Normal. OTHER FINDINGS: None. IMPRESSION: No active disease.
--- NOTE | 2016-12-04 02:30 | CON ---
DATE: 12/03/2016 NEUROLOGY CONSULTATION REASON FOR THE CONSULTATION: History of seizure disorde, to adjust the medication. CHIEF COMPLAINT: The patient was admitted in psychiatric floor because of bipolar disorder with manic episode. From the history of seizure disorder, I was called in to evaluate Sz and AEDs. HISTORY OF PRESENT ILLNESS: Ms. Madison Alfred is a 60-year-old right-handed female, who was seen by me as outpatient for seizure disorder, who has been under workup for these seizures in my office. Since, she has been taking phenobarbital for the longtime, I would like to continue the phenobarbital until the workup is completed. We will taper the medication off. There is no recent seizure activities as per the history. PAST MEDICAL HISTORY: Psychiatric problem, history of seizure disorder, bipolar disorder. MEDICATIONS: Benadryl, Haldol, Ativan, milk of magnesia, [place], phenobarbital, and Seroquel. ALLERGIES: NO KNOWN ALLERGIES. PHYSICAL EXAMINATION VITAL SIGNS: Blood pressure 122/65, mean arterial pressure of 84, respiration 16, temperature is 95.5, pulse rate 68 and regular. NECK: Supple. No carotid bruit. CARDIOPULMONARY: S1 and S2, regular. LUNGS: Fair air entry. EXTREMITIES: No edema. NEUROLOGIC: The patient is examined in the presence of an asbestos abatement technician. She is awake, alert and oriented to person, place and time. Speech is clear. Naming, repetition, fluency, comprehension all within normal. She could remember me as well as she knew that she has been getting workup with me. She stated that she does not have any seizures recently. CRANIAL NERVE EXAMINATION: Visual field intact. Pupils reactive to light. Extraocular movements normal. No nystagmus. No facial sensory deficit. No facial asymmetry. Hearing is normal. Tongue is midline. Good gag. MOTOR EXAMINATION: Outstretched hand with eyes closed. No drift noted. Power is symmetric on either side. DEEP TENDON REFLEXES: Biceps to brachialis, triceps knee and ankle all are 2+. Plantars are downgoing.. SENSORY EXAMINATION: Grossly intact. COORDINATION: Xfjyhu-bpcr-blbvii test is intact. The examination does not shows any toxicity from phenobarbital. History of seizure disorder, has been on phenobarbital for long period of time. The current examination does not show any long tract signs. The patient has been stable on phenobarbital with the current dose. RECOMMENDATIONS: I would like to continue the phenobarbital at the current dose. After the workup as outpatient probably I would like to taper off the medication from the system. In the meantime, I would like to continue the followup with you and her medication should be continued and titrated. This will be slowly tapered off and unwanted medication should be tapered off as well. The patient will be followed while she is in the hospital if needed. Otherwise, the patient will be followed by me as an outpatient. Liban Castano MD MTDAdore
[2016-12-04] MEDS: Omega-3-Acid Ethyl Esters 1 GM Cap PO SCH ×2 (08:54→16:55)
--- NOTE | 2016-12-04 09:19 | PCM.PYCHPN ---
Psychiatric Progress Note - Psychiatric Progress Note Patient seen today, length of contact: pt seen and evaluated Patient Chief Complaint: pt has h/o manic episode and admitted for acute saadia and was not sleeping and feeling paranoid .pt is still very easily irritible and does not sleep and tried to pinch other pt. Mental Status Examination - Cognitive Function Orientation: Person, Place, Situation - Mood Mood: Anxious, Euphoric - Affect Affect: Broad - Formal Thought Process Formal Thought Process: Delusions, Loosening of associations - Homicidal Ideation Homicidal Ideation: No
--- NOTE | 2016-12-04 09:23 | PCM.PYCHPN ---
Psychiatric Progress Note - Psychiatric Progress Note Patient seen today, length of contact: pt seen and evaluated Patient Chief Complaint: pt has h/o manic episode and admitted for acute saadia and was not sleeping and feeling paranoid .pt is still very easily irritible and does not sleep and tried to pinch other pt. DSM 5 Symptoms Update: bipolar disorder ,severe manic Medication Change: Yes (will increase seroquel ) Medical Record Reviewed: Yes Mental Status Examination - Cognitive Function Orientation: Person, Place, Situation Memory: Impaired Attention: Poor Concentration: Poor Association: Loose Fund of Knowledge: WNL - Mood Mood: Anxious, Euphoric - Affect Affect: Broad - Formal Thought Process Formal Thought Process: Delusions, Loosening of associations - Homicidal Ideation Homicidal Ideation: No Goal/Treatment Plan - Goal/Treatment Plan Progress Toward Problem(s) and Goals/Treatment Plan: will increase seroquel to100 mg hs to stabilize the pt and engage pt in therapy . disposition plAnning as per dr sarmiento
[2016-12-05] MEDS: Omega-3-Acid Ethyl Esters 1 GM Cap PO SCH ×2 (09:14→16:41)
--- NOTE | 2016-12-05 09:42 | PN ---
MEDICAL FOLLOWUP DATE: 12/05/2016 SUBJECTIVE: The patient is seen and examined, interim events noted. Consult note has appreciated. Neurology and psychiatry followup and intervention noted and appreciated. The patient remains in . The patient denies any specific medical complaint. No chest pain and no shortness of breath. PHYSICAL EXAMINATION GENERAL: The patient is in no acute distress. VITAL SIGNS: Stable. HEENT: S1 and S2 normal and regular. LUNGS: Good bilateral air entry. ABDOMEN: Soft and nontender. EXTREMITIES: No edema. No calf swelling or tenderness. No acute ischemia. CENTRAL NERVOUS SYSTEM: Essentially unchanged. DIAGNOSTIC DATA: Available diagnostic data reviewed. IMPRESSION: The patient is medically stable PLAN: As ordered. Alexys Granado MD
--- NOTE | 2016-12-05 15:29 | PCM.PYCHPN ---
Psychiatric Progress Note - Psychiatric Progress Note Patient seen today, length of contact: pt seen and evaluated Patient Chief Complaint: pt has h/o manic episode and admitted for acute saadia and was not sleeping and feeling paranoid .pt is still very easily irritible and does not sleep and tried to pinch other pt. Problems Identified/Issues Discussed: admitted for acute manic episode Medication Change: Yes (will increase seroquel to 50 mg bid ) Medical Record Reviewed: Yes Mental Status Examination - Cognitive Function Orientation: Person, Place, Situation Memory: Impaired Attention: Poor Concentration: Poor Association: Loose Fund of Knowledge: WNL - Mood Mood: Anxious, Euphoric - Affect Affect: Broad - Formal Thought Process Formal Thought Process: Delusions, Loosening of associations - Homicidal Ideation Homicidal Ideation: No Goal/Treatment Plan - Goal/Treatment Plan Progress Toward Problem(s) and Goals/Treatment Plan: will increase seroquel to 50 mg bid to stabilize the pt and engage pt in therapy . disposition plAnning as per dr sarimento
[2016-12-05] MEDS: Alum-Mag Hydrox-Simethicone Susp (30 mL) PO PRN (22:09)
[2016-12-06] MEDS: Omega-3-Acid Ethyl Esters 1 GM Cap PO SCH ×2 (09:01→17:14)
--- NOTE | 2016-12-06 10:27 | PN ---
DATE: 12/06/2016 SUBJECTIVE: The patient is seen and examined, interim events noted. Consult note had appreciated. Psychiatry follow up and intervention note are appreciated. The patient remains in psych unit. The patient is alert and responsive. She denies any specific medical complaint. Specifically, no chest pain or shortness of breath. No seizure activities. PHYSICAL EXAMINATION GENERAL: The patient is in no acute distress. VITAL SIGNS: Stable. HEART: S1 and S2 normal and regular. LUNGS: Good bilateral air exchange. ABDOMEN: Soft and nontender. EXTREMITIES: No edema. No calf swelling or tenderness. CENTRAL NERVOUS SYSTEM: Essentially unchanged. DIAGNOSTIC DATA: Available diagnostic data reviewed. ASSESSMENT: Overall, the patient's medical condition is stable. PLAN: As ordered. Alexys Granado MD
--- NOTE | 2016-12-06 13:36 | PCM.PYCHPN ---
Psychiatric Progress Note - Psychiatric Progress Note Patient seen today, length of contact: in treatment team Patient Chief Complaint: i want to go home Problems Identified/Issues Discussed: pt with rapid speech. difficult to interrupt. she is anxious. pt states she needs to go to care for her medical problems. she is agreeable to depakote for mood symptoms. Medication Change: Yes (start depakote) Medical Record Reviewed: Yes Mental Status Examination - Cognitive Function Orientation: Person, Place, Situation Memory: Impaired Attention: Poor Concentration: Poor Association: Loose Fund of Knowledge: WNL Decription of patient's judgement and insights: superficial - Mood Mood: Anxious, Euphoric - Affect Affect: Broad - Formal Thought Process Formal Thought Process: Delusions, Loosening of associations - Suicidal Ideation Suicidal Ideation: No - Homicidal Ideation Homicidal Ideation: No Goal/Treatment Plan - Goal/Treatment Plan Need for Continued Stay: Remain at risks for inpatient hospitalization, Severe functional impairment Progress Toward Problem(s) and Goals/Treatment Plan: bipolar disorder pt needs further treatment and stabilization start depakote for mood increase seroquel appreciate dr. butler following pt disposition planning Estimated Date of D/C: 12/10/16
[2016-12-06] MEDS: Divalproex 250 mg DR(BID formulation) PO SCH (17:14)
[2016-12-06] MEDS: Alum-Mag Hydrox-Simethicone Susp (30 mL) PO PRN (21:55)
[2016-12-07] MEDS: Omega-3-Acid Ethyl Esters 1 GM Cap PO SCH ×2 (08:53→17:20)
[2016-12-07] MEDS: Divalproex 250 mg DR(BID formulation) PO SCH ×2 (08:53→17:21)
--- NOTE | 2016-12-07 09:28 | CON ---
CHIEF COMPLAINT: Was sent from psychiatric clinic for manic depressive disease. HISTORY OF PRESENT ILLNESS: This is a 60-year-old female, known case of epilepsy, who was seen by psychiatry, then was thought to have uncontrolled manic depressive disease, so the patient was sent to the hospital and was admitted for further management. REVIEW OF SYSTEMS: Positive for her psychiatric issues. Review of systems is negative for headache, dizziness, syncope, loss of consciousness, chest pain, shortness of breath, nausea, vomiting, diarrhea, or constipation, any new joint or extremity pain. Review of system of all other organ system is unremarkable. PAST MEDICAL HISTORY: Significant for epilepsy. PAST SURGICAL HISTORY: Unremarkable. PERSONAL HISTORY: The patient is currently nonsmoker, nondrinker. No substance abuse. MEDICATIONS: The patient is on multiple medications, which is as per reconciliation sheet, which was reviewed in order. ALLERGIES: The patient is not allergic to any medication. FAMILY HISTORY: Noncontributory. PHYSICAL EXAMINATION GENERAL: Well-built, well-nourished, 60-year-old female, in no acute distress. VITAL SIGNS: Temperature afebrile, pulse 88, respirations 18, blood pressure 130/80. HEENT: Pupils reacting to light. No JVD. No thyromegaly. No lymphadenopathy. No nystagmus. Normocephalic and atraumatic scalp. HEART: S1 and S2 normal and regular. No significant murmur, gallop, or rub is heard. LUNGS: Show good bilateral air entry. No rales or rhonchi. ABDOMEN: Soft and nontender. No organomegaly. No fluid. Bowel sounds are plus. EXTREMITIES: No edema. No calf swelling or tenderness. No acute ischemia. CLINICAL REVIEW NURSE: Essentially unchanged and there is no sign of any acute gross focal, motor, or sensory neurological deficit. DIAGNOSTICS DATA: Available diagnostic data reviewed. CONSULTING IMPRESSION: The patient with epilepsy admitted for uncontrolled psychiatric issue. Overall, the patient is medically stable. *------* Alexys Granado MD
--- NOTE | 2016-12-07 15:44 | PCM.PYCHPN ---
Psychiatric Progress Note - Psychiatric Progress Note Patient seen today, length of contact: discussed with team Patient Chief Complaint: what time is it? Problems Identified/Issues Discussed: pt confused, anxious and somewhat grandiose. taking medications as prescribed. Medication Change: No ( ) Medical Record Reviewed: Yes Mental Status Examination - Cognitive Function Orientation: Person, Place, Situation Memory: Impaired Attention: Poor Concentration: Poor Association: Loose Fund of Knowledge: WNL Decription of patient's judgement and insights: superficial - Mood Mood: Anxious, Euphoric - Affect Affect: Broad - Formal Thought Process Formal Thought Process: Delusions, Loosening of associations - Suicidal Ideation Suicidal Ideation: No - Homicidal Ideation Homicidal Ideation: No Goal/Treatment Plan - Goal/Treatment Plan Need for Continued Stay: Remain at risks for inpatient hospitalization, Severe functional impairment Progress Toward Problem(s) and Goals/Treatment Plan: bipolar disorder pt needs further treatment and stabilization continue depakote continue lizbeth appreciate dr. butler following pt- waiting for eeg disposition planning Estimated Date of D/C: 12/10/16
[2016-12-08] MEDS: Omega-3-Acid Ethyl Esters 1 GM Cap PO SCH ×2 (08:50→17:55)
[2016-12-08] MEDS: Divalproex 250 mg DR(BID formulation) PO SCH ×2 (08:50→17:56)
--- NOTE | 2016-12-08 08:56 | PN ---
SUBJECTIVE: The patient seen and . Interim events noted. Psychiatry follow up noted and appreciated. The patient still remains maniac. The patient denies any specific medical complaints. No chest pain. No shortness of breath. PHYSICAL EXAMINATION GENERAL: The patient is in no acute distress. VITAL SIGNS: Stable. Physical exam is essentially unchanged. DIAGNOSTIC DATA: Available diagnostic data reviewed. ASSESSMENT: The patient's general medical condition is stable. PLAN: As ordered. Alexys Granado MD
--- NOTE | 2016-12-08 10:08 | PN ---
MEDICAL FOLLOWUP PROGRESS NOTE DATE: 12/08/2016 SUBJECTIVE: The patient seen and examined, interim events noted. Psychiatry followup and intervention noted and appreciated. The patient remains in psych unit. Denies any specific medical complaint. No chest pain or shortness of breath. PHYSICAL EXAMINATION: GENERAL: The patient is in no acute distress. VITAL SIGNS: Stable. HEART: S1 and S2 normal, regular. LUNGS: Good bilateral air exchange. ABDOMEN: Soft and nontender. EXTREMITIES: No edema. No calf swelling. No tenderness. No acute ischemia. CENTRAL NERVOUS SYSTEM: Essentially unchanged. DIAGNOSTIC DATA: Available diagnostic data reviewed. ASSESSMENT: Overall, the patient's general medical condition is stable. PLAN: As ordered. Alexys Granado MD
--- NOTE | 2016-12-08 13:29 | PCM.PYCHPN ---
Psychiatric Progress Note - Psychiatric Progress Note Patient seen today, length of contact: discussed with team Patient Chief Complaint: i will stay here Problems Identified/Issues Discussed: pt pacing the halls, manic. hugging peers. grandiose, rapid speech. per night staff, she slept through the night. pt has retracted her 48hr notice. peer review completed and pt approved thru monday 12/11 Medication Change: No ( ) Medical Record Reviewed: Yes Mental Status Examination - Cognitive Function Orientation: Person, Place, Situation Memory: Impaired Attention: Poor Concentration: Poor Association: Loose Fund of Knowledge: WNL Decription of patient's judgement and insights: superficial - Mood Mood: Anxious, Euphoric - Affect Affect: Broad - Formal Thought Process Formal Thought Process: Delusions, Loosening of associations - Suicidal Ideation Suicidal Ideation: No - Homicidal Ideation Homicidal Ideation: No Goal/Treatment Plan - Goal/Treatment Plan Need for Continued Stay: Remain at risks for inpatient hospitalization, Severe functional impairment Progress Toward Problem(s) and Goals/Treatment Plan: bipolar disorder pt needs further treatment and stabilization continue depakote- check level tomorrow continue seroquel- increase to 100/100/[address] bulter following pt- waiting for eeg disposition planning Estimated Date of D/C: 12/10/16
--- NOTE | 2016-12-09 08:48 | PN ---
DATE: 12/09/2016 MEDICAL FOLLOWUP PROGRESS NOTE SUBJECTIVE: The patient is seen and examined. Interim events noted. Consult note is appreciated. Psychiatry followup and intervention noted and appreciated. The patient remains in Psychiatry Unit. The patient for specific complaint. PHYSICAL EXAMINATION: GENERAL: The patient is in no acute distress. VITAL SIGNS: Stable. Physical exam is essentially unchanged. DIAGNOSTIC DATA: Available diagnostic data reviewed. ASSESSMENT: Overall, the patient's general medical condition is stable. PLAN: As ordered. Alexys Granado MD
[2016-12-09] MEDS: Divalproex 250 mg DR(BID formulation) PO SCH (09:19)
[2016-12-09] MEDS: Omega-3-Acid Ethyl Esters 1 GM Cap PO SCH ×2 (09:19→17:35)
[2016-12-09] MEDS: Alum-Mag Hydrox-Simethicone Susp (30 mL) PO PRN (10:21)
--- NOTE | 2016-12-09 11:07 | PCM.PYCHPN ---
Psychiatric Progress Note - Psychiatric Progress Note Patient seen today, length of contact: discussed with team Patient Chief Complaint: i am not going Problems Identified/Issues Discussed: pt still pacing, intrusive. pt with pressured speech, flight of ideas. pt with disrupted sleep. she is no longer demanding discharge. she denies medication side effects. Diagnostic Results: valproic acid 26.5 Medication Change: Yes (inc. depakote) Medical Record Reviewed: Yes Mental Status Examination - Cognitive Function Orientation: Person, Place, Situation Memory: Impaired Attention: Poor Concentration: Poor Association: Loose Fund of Knowledge: WNL Decription of patient's judgement and insights: superficial insight - Mood Mood: Anxious, Euphoric - Affect Affect: Broad - Speech Speech: Loud, Pressured - Formal Thought Process Formal Thought Process: Delusions, Loosening of associations - Suicidal Ideation Suicidal Ideation: No - Homicidal Ideation Homicidal Ideation: No Goal/Treatment Plan - Goal/Treatment Plan Need for Continued Stay: Remain at risks for inpatient hospitalization, Severe functional impairment Progress Toward Problem(s) and Goals/Treatment Plan: bipolar disorder pt needs further treatment and stabilization continue depakote- raise to 500mg bid based on level continue seroquel- increase to 100/100/[address] butler following pt- waiting for eeg results disposition planning Estimated Date of D/C: 12/10/16
[2016-12-09] MEDS: Divalproex 500 mg DR(BID formulation) PO SCH (17:34)
--- NOTE | 2016-12-10 08:37 | EEG ---
DATE: 12/03/2016 This is a 16-channel electroencephalogram of awake and drowsy adult. During the study, photic stimulation was performed and hyperventilation was not performed. The resting electroencephalogram consist of 9-11 Hz moderate voltage alpha activities seen at the parietal and occipital leads. Anteriorly fast activities superimposed with 2-3 Hz of delta activities seen at frontal and central leads. The photic stimulation did not evoke driving response noted at the 2-20 Hz. IMPRESSION: This a normal electroencephalogram of awake and drowsy adult. During the study, neither electroencephalographic paroxysmal activities nor focal slowing noted. Liban Castano MD MTDD
--- NOTE | 2016-12-10 08:37 | PN ---
DATE: 12/10/2016 MEDICAL FOLLOWUP SUBJECTIVE: The patient is seen and examined. Interim events noted. Psychiatry followup and neurology followup and intervention noted and appreciated. The patient remains in Psychiatry Unit. Denies any specific complaint. PHYSICAL EXAMINATION: GENERAL: The patient is in no acute distress. VITAL SIGNS: Stable. Physical exam is essentially unchanged . The patient has no seizures. ASSESSMENT: Overall, the patient is medically stable. PLAN: As ordered. Alexys Granado MD
[2016-12-10] MEDS: Omega-3-Acid Ethyl Esters 1 GM Cap PO SCH ×2 (08:58→17:32)
[2016-12-10] MEDS: Divalproex 500 mg DR(BID formulation) PO SCH ×2 (08:59→17:32)
--- NOTE | 2016-12-10 12:05 | PCM.PYCHPN ---
Psychiatric Progress Note - Psychiatric Progress Note Patient seen today, length of contact: discussed with team Patient Chief Complaint: i want to go soon Problems Identified/Issues Discussed: pt is with rapid speech. pt is pacing up and down the halls. seeing other pt's get discharged today has upset the pt and she is seeking discharge. pt's sleep has improved. Diagnostic Results: valproic acid 26.5 Medication Change: Yes (inc. seroquel) Medical Record Reviewed: Yes Mental Status Examination - Cognitive Function Orientation: Person, Place, Situation Memory: Impaired Attention: Poor Concentration: Poor Association: Loose Fund of Knowledge: WNL Decription of patient's judgement and insights: superficial insight - Mood Mood: Anxious, Euphoric - Affect Affect: Broad - Speech Speech: Loud, Pressured - Formal Thought Process Formal Thought Process: Delusions, Loosening of associations - Suicidal Ideation Suicidal Ideation: No - Homicidal Ideation Homicidal Ideation: No Goal/Treatment Plan - Goal/Treatment Plan Need for Continued Stay: Remain at risks for inpatient hospitalization, Severe functional impairment Progress Toward Problem(s) and Goals/Treatment Plan: bipolar disorder pt needs further treatment and stabilization continue depakote- dose raised to 500mg bid, will check level 12/13 continue seroquel- increase to 100/100/[address] butler following pt- waiting for eeg results/? start to taper the phenobarb? disposition planning- t/c dc next week if continues to improve Estimated Date of D/C: 12/13/16
[2016-12-10] MEDS: Alum-Mag Hydrox-Simethicone Susp (30 mL) PO PRN (19:54)
[2016-12-10] MEDS: QUEtiapine 300 MG TABLET PO SCH (21:22)
--- NOTE | 2016-12-11 08:32 | PN ---
DATE: 12/11/2016 SUBJECTIVE: The patient is seen and examined. Interim events noted. Consult notes are appreciated. Psychiatry followup and intervention noted and appreciated. The patient remains in Psychiatry Unit. . Denies any specific medical complaint. PHYSICAL EXAMINATION: GENERAL: The patient is in no acute distress. VITAL SIGNS: Stable. Physical exam is essentially unchanged. DIAGNOSTIC DATA: Available diagnostic data reviewed. ASSESSMENT: Overall, the patient is medically stable. PLAN: As ordered. Alexys Granado MD
[2016-12-11] MEDS: Omega-3-Acid Ethyl Esters 1 GM Cap PO SCH ×2 (10:29→17:38)
[2016-12-11] MEDS: Divalproex 500 mg DR(BID formulation) PO SCH ×2 (10:29→17:38)
--- NOTE | 2016-12-11 11:05 | PCM.PYCHPN ---
Psychiatric Progress Note - Psychiatric Progress Note Patient seen today, length of contact: Patient evaluated, case discussed with team, chart reviewed Patient Chief Complaint: "I'm feeling good, I just cleaned the tables" Problems Identified/Issues Discussed: Patient continues to be euphoric, happy and psychmotor activated, but seems to be less manic than upon admission. She is compliant with medications. Denies any adverse effects. She speaks rapidly and engages in excessive activities, such as spontaneously cleaning up. She does not want any medication modifications at this time. Medication Change: No Medical Record Reviewed: Yes Mental Status Examination - Cognitive Function Orientation: Person, Place, Situation Memory: Impaired Attention: Poor Concentration: Poor Association: Loose Fund of Knowledge: WNL Decription of patient's judgement and insights: Poor I/J - Mood Mood: Anxious, Euphoric - Affect Affect: Broad - Speech Speech: Pressured - Formal Thought Process Formal Thought Process: Loosening of associations, Flight of ideas Psychotic Thoughts and Behaviors: Denies AH/VH/paranoia to signwriter - Suicidal Ideation Suicidal Ideation: No - Homicidal Ideation Homicidal Ideation: No Goal/Treatment Plan - Goal/Treatment Plan Need for Continued Stay: Remain at risks for inpatient hospitalization, Severe functional impairment Progress Toward Problem(s) and Goals/Treatment Plan: Bipolar disorder; pt needs further treatment and stabilization for acute saadia continue depakote- dose raised to 500mg bid, will check level 8/7 continue seroquel- dose raised to 100/100/[address] butler following pt- waiting for eeg results/? start to taper the phenobarb? disposition planning- t/c dc next week if continues to improve Estimated Date of D/C: 12/13/16
[2016-12-11] MEDS: QUEtiapine 300 MG TABLET PO SCH (21:30)
[2016-12-11] MEDS: Alum-Mag Hydrox-Simethicone Susp (30 mL) PO PRN (21:34)
[2016-12-12] MEDS: Omega-3-Acid Ethyl Esters 1 GM Cap PO SCH ×2 (08:37→17:39)
[2016-12-12] MEDS: Divalproex 500 mg DR(BID formulation) PO SCH ×2 (08:37→17:39)
--- NOTE | 2016-12-12 09:54 | PN ---
MEDICAL FOLLOWUP NOTE DATE: 12/12/2016 SUBJECTIVE: The patient seen and examined, interim events noted. Psychiatry followup and intervention noted and appreciated. The patient remains in Psychiatric Unit. Denies any specific medical complaint. No chest pain and no shortness of breath. PHYSICAL EXAMINATION: GENERAL: The patient is in no acute distress. VITAL SIGNS: Stable. HEART: S1 and S2 normal, regular. LUNGS: Good bilateral air exchange. ABDOMEN: Soft and nontender. EXTREMITIES: No edema. No calf swelling. No tenderness. No acute ischemia. CENTRAL NERVOUS SYSTEM: Essentially unchanged. DIAGNOSTIC DATA: Available diagnostic data reviewed. ASSESSMENT: Overall, the patient's general medical condition is stable. PLAN: As ordered. Alexys Granado MD
--- NOTE | 2016-12-12 14:05 | PCM.PYCHPN ---
Psychiatric Progress Note - Psychiatric Progress Note Patient seen today, length of contact: Patient evaluated, case discussed with team, chart reviewed Patient Chief Complaint: "I'm good" Problems Identified/Issues Discussed: Patient calm, cooperative, less manic. Less pressured speech. She reports her mood is good. No acute complaints. NO SI/HI/AH/VH/paranoia. Diagnostic Results: 12/12/16- VPA 60.1 12/03/16- EEG Normal 12/03/16- Neurology consult- Continue phenobarbital at the current dose; will consider taper of medication as an outpatient Medication Change: No Medical Record Reviewed: Yes Mental Status Examination - Cognitive Function Orientation: Person, Place, Situation Memory: Impaired Association: Loose Decription of patient's judgement and insights: Improving I/J - Mood Mood: Neutral - Affect Affect: Broad - Speech Speech: Appropriate - Formal Thought Process Formal Thought Process: Loosening of associations Psychotic Thoughts and Behaviors: Denies AH/VH/paranoia to fiction and nonfiction prose writer - Suicidal Ideation Suicidal Ideation: No - Homicidal Ideation Homicidal Ideation: No Goal/Treatment Plan - Goal/Treatment Plan Need for Continued Stay: Remain at risks for inpatient hospitalization, Severe functional impairment Progress Toward Problem(s) and Goals/Treatment Plan: Bipolar disorder; pt needs further treatment and stabilization; patient starting to improve clinically -Continue Depakote- 12/12/16- VPA 60.1 -Continue Seroquel -Neurology: 12/03/16- EEG Normal 12/03/16- Neurology consult- Continue phenobarbital at the current dose; will consider taper of medication as an outpatient -Disposition planning Estimated Date of D/C: 12/14/16
[2016-12-12] MEDS: QUEtiapine 300 MG TABLET PO SCH (21:23)
[2016-12-13] MEDS: Omega-3-Acid Ethyl Esters 1 GM Cap PO SCH ×2 (08:08→17:08)
[2016-12-13] MEDS: Divalproex 500 mg DR(BID formulation) PO SCH ×2 (08:08→17:08)
--- NOTE | 2016-12-13 08:10 | PN ---
DATE: 12/13/2016 SUBJECTIVE: The patient seen and examined, interim events noted. Psychiatry followup and intervention noted and appreciated. The patient remains in psych unit. Denies any specific medical complaint. . PHYSICAL EXAMINATION GENERAL: The patient is in no acute distress. VITAL SIGNS: Stable. Physical examination essentially unchanged. DIAGNOSTIC DATA: Available diagnostic data reviewed. ASSESSMENT: Overall, the patient's general medical condition is stable. PLAN: As ordered. Alexys Granado MD
--- NOTE | 2016-12-13 09:18 | CP.PCM.CON ---
History of Present Illness - History of Present Illness History of Present Illness: Pt is a 61 year old female referred to the grant writer for evaluation of her cognitive functioning. On the DRS, pt scored an overall score of 116. Pt scored within normal limits on Conceptualization, Construction and Attention tasks. Pt's Initiation, and Memory skills fell in the Deficient Range. pt was perseverative on testing and had difficulty switching cognitive sets both in her written copy and verbal responses. Deficits were evident for someone of this age. Overall 116 (124+= intact cognitive skills Memory 16 - Deficient Initiation 29 Deficient Reccomendations Assistance with medication management and bll pay. Monitoring for decline in her functioning Thank you for this referral, Dr. Guerrero Past Patient History - Past Social History Alcohol: None Drugs: Denies - CARDIAC Hx Cardiac Disorders: No - PULMONARY Hx Respiratory Disorders: No - NEUROLOGICAL Hx Neurological Disorder: Yes Other/Comment: hx of epileptic attacks - HEENT Hx HEENT Problems: No - RENAL Hx Chronic Kidney Disease: No - ENDOCRINE/METABOLIC Hx Endocrine Disorders: No - HEMATOLOGICAL/ONCOLOGICAL Hx Blood Disorders: No - INTEGUMENTARY Hx Dermatological Problems: No - MUSCULOSKELETAL/RHEUMATOLOGICAL Hx Musculoskeletal Disorders: No - GENITOURINARY/GYNECOLOGICAL Other/Comment: cervucal dysplasia - PSYCHIATRIC Hx Bipolar Disorder: Yes Hx Depression: Yes Hx Substance Use: No - SURGICAL HISTORY Hx Surgeries: No - ANESTHESIA Hx Anesthesia: No Meds Allergies/Adverse Reactions: Allergies Allergy/AdvReac Type Severity Reaction Status Date / Time No Known Allergies Allergy Verified 12/02/16 18:18 - Medications Medications: Current Medications Acetaminophen (Tylenol 325mg Tab) 650 mg PO Q4 PRN PRN Reason: Pain, moderate (4-7) Al Hydrox/Mg Hydrox/Simethicone (Maalox Plus 30 Ml) 30 ml PO Q4 PRN PRN Reason: Dyspepsia Last Admin: 12/11/16 21:34 Dose: 30 ml Diphenhydramine HCl (Benadryl) 50 mg IM Q6 PRN PRN Reason: Extrapyramidal S/S Unable PO Diphenhydramine HCl (Benadryl) 50 mg PO Q6 PRN PRN Reason: Extrapyramidal Symptoms Last Admin: 12/12/16 21:52 Dose: 50 mg Divalproex Sodium (Rosio Lainez(*Bid*)) 500 mg PO BID RAHUL Last Admin: 12/13/16 08:08 Dose: 500 mg Haloperidol (Haldol) 5 mg PO Q4 PRN PRN Reason: Agitation Haloperidol Lactate (Haldol) 5 mg IM Q4 PRN PRN Reason: Agitation, Unable to Take PO Lorazepam (Ativan) 2 mg IM Q4 PRN PRN Reason: Anxiety/Agitation,Unable PO Lorazepam (Ativan) 2 mg PO Q4 PRN PRN Reason: Anxiety/Agitation Last Admin: 12/08/16 11:46 Dose: 2 mg Magnesium Hydroxide (Milk Of Magnesia) 30 ml PO HS PRN PRN Reason: Constipation [id number] Ethyl Esters (Lovaza) 1 gm PO BID [facility] Last Admin: 12/13/16 08:08 Dose: 1 gm Quetiapine Fumarate (Seroquel) 100 mg PO BID [facility] Last Admin: 12/13/16 08:08 Dose: 100 mg Quetiapine Fumarate (Seroquel) 300 mg PO HS [facility] Last Admin: 12/12/16 21:23 Dose: 300 mg Results - Vital Signs Recent Vital Signs: Last Vital Signs Temp 97.7 F 12/12/16 17:00 Pulse 102 H 12/12/16 17:00 Resp 18 12/12/16 17:00 BP 117/68 12/12/16 17:00 Pulse Ox 99 12/02/16 23:26 - Labs Result Diagrams: 12/02/16 20:15 12/02/16 20:15
[2016-12-13] MEDS: Alum-Mag Hydrox-Simethicone Susp (30 mL) PO PRN ×2 (11:02→22:31)
--- NOTE | 2016-12-13 12:00 | PCM.PYCHPN ---
Psychiatric Progress Note - Psychiatric Progress Note Patient seen today, length of contact: in treatment team Patient Chief Complaint: i feel much better Problems Identified/Issues Discussed: pt seen in treatment team. she states her thoughts are more clear and no longer racing. she still has rapid speech. she denies medication side effects. sleep is improved. Diagnostic Results: valproic acid 60 Medication Change: No Medical Record Reviewed: Yes Mental Status Examination - Cognitive Function Orientation: Person, Place, Situation Memory: Impaired Attention: WNL Association: L Fund of Knowledge: [facility] Decription of patient's judgement and insights: fair - Mood Mood: Neutral - Affect Affect: Broad - Speech Speech: Appropriate - Formal Thought Process Formal Thought Process: No Impairment - Suicidal Ideation Suicidal Ideation: No - Homicidal Ideation Homicidal Ideation: No Goal/Treatment Plan - Goal/Treatment Plan Need for Continued Stay: Remain at risks for inpatient hospitalization, Severe functional impairment Progress Toward Problem(s) and Goals/Treatment Plan: bipolar disorder pt needs further treatment and stabilization continue depakote continue seroquel 100/100/300 discharge tomorrow Estimated Date of D/C: 12/14/16
[2016-12-13 16:25] VITALS: RESP 20
[2016-12-13] MEDS: QUEtiapine 300 MG TABLET PO SCH (21:13)
[2016-12-14] MEDS: Omega-3-Acid Ethyl Esters 1 GM Cap PO SCH (09:04)
[2016-12-14] MEDS: Divalproex 500 mg DR(BID formulation) PO SCH (09:04)
[2016-12-14 09:27] VITALS: BP 111/77; PULSE 99; TEMP 97.9
--- NOTE | 2016-12-14 11:19 | PCM.PYCHDC ---
Mental Status Examination - Mental Status Examination Orientation: Person, Place, Situation, Time Memory: Intact Mood: Neutral Affect: Broad Speech: Pressured Attention: WNL Concentration: WNL Association: WNL Fund of Knowledge: WNL Formal Thought Process: No Impairment Description of patient's judgement and insight: fair Psychotic Thoughts and Behaviors: denies a/v hallucinations Suicidal Ideation: No Current Homicidal Ideation?: No Plan: denies suicidal or homicidal thoughts Discharge Summary - Discharge Note Reason for Hospitalization: [facility] Psychiatric History (includes Medical, Family, Personal Hx): history of bipolar disorder Laboratory Data: depakote level 60 Consultations:: List each consultation separately and include: 1. Reason for request. 2. Findings. 3. Follow-up Consultations: seen by medical coding specialist Summary of Hospital Course include:: 1. Description of specific treatment plan utilized for patients during their course of treatmen. 2. Summarize the time- course for resolution of acute symptoms and/or regressed behaviors. 3. Describe issues identified and worked on during hospitalization. 4. Describe medication utilized. 5. Describe medical problems identified and treated. 6. Reassessment of suicide risk Summary of Hospital Course: pt is a 60 yo female with seizure disorder, bipolar disorder. discharged from the [facility] unit on tuesday and seen by her psychiatrist yesterday who found the pt to be manic. per report family stated pt had not slept or stopped talking since her discharge. she was unable to get her phenobarbitol from her neurologist and became anxious about this. today the pt is confused, writing down her medications because she states "i don't have a voice" despite talking clearly in lao. she denies having any symptoms and states she's been sleeping very well since she was discharge. she denies a/v hallucinations, but does appear to be internally preoccupied and with disorganized thoughts. pt was admitted to [facility] and oriented to the unit. pt was placed on routine safety protocols. pt was seen by medical coding specialist as well as the neurologist. she was started on seroquel and the dose titrated up to 100mg bid and 300mg hs. depakote was added and titrated up to 500mg twice a day and pt's level was 60.1. she reported improvement in her symptoms of racing thoughts and thought disorganization. her sleep improved. she was denying any suicidal or homicidal thoughts at the time of discharge. - Final Diagnosis (DSM 5) Condition upon Discharge: STABLE DSM 5: bipolar disorder, mixed Disposition: HOME/ ROUTINE Follow-up Treatment Plan: follow up with aftercare as directed take medications as prescribed do not use alcohol, tobacco or other illicit substances call 911 if any suicidal or homicidal thoughts see your neurologist for follow up as you were prescribed 1 week of phenobarbitol Prescriptions/Medication Reconciliation: Divalproex [Depakote DR(*BID*)] 500 mg PO BID #60 tcp PHENobarbital [PHENobarbital Tab] 90 mg PO HS #21 tab QUEtiapine [Seroquel] 100 mg PO BID #60 tab QUEtiapine [SEROquel] 300 mg PO HS #30 tab - Smoking Cessation Smoking Cessation Medication prescribed: No - Antipsychotic Medications Pt discharged on 2 or more routine antipsychotic medications: No
--- NOTE | 2016-12-14 15:03 | PN ---
DATE: 12/14/2016 SUBJECTIVE: The patient seen and examined. Interim events noted. Psychiatry intervention noted and appreciated. The patient remains in psych unit. The patient is much brighter, we will discharge today. No chest pain, no shortness of breath. No seizures. PHYSICAL EXAMINATION: GENERAL: The patient is in no acute distress. VITAL SIGNS: Stable. HEART: S1 and S2 normal and regular. LUNGS: Good bilateral air exchange. ABDOMEN: Soft and nontender. EXTREMITIES: No edema. No calf swelling or tenderness. No acute ischemia. CENTRAL NERVOUS SYSTEM: Essentially unchanged. DIAGNOSTIC DATA: Available diagnostic data reviewed. ASSESSMENT: Overall, the patient's general medical condition is stable. The patient is medically stable for discharge. The patient was advised to follow up in my office in a week. Alexys Granado MD
== END 2016-12-14 11:00 | disposition home or self-care (01) | DRG 430 ==
LOC: H.ER 18:17 → H.ERHOLD 21:21 → H.PSYCH 12-03 01:02
PROVIDERS: ADMIT Psychiatry & Neurology Psychiatry; ATTEND Psychiatry & Neurology Psychiatry
PROC: GZHZZZZ Group Psychotherapy (ICD-10-PCS; principal; 2016-12-02)
PROC: GZ56ZZZ Individual Psychotherapy, Supportive (ICD-10-PCS; 2016-12-02)
DX: F31.60 Bipolar disorder, current episode mixed, unspecified (principal); G40.909 Epilepsy, unspecified, not intractable, without status epilepticus